=== PATIENT | female | born 1955 | race Caucasian/White ===

== ENCOUNTER → 2016-10-19 | Outpatient (CLI) | payer BC ==
--- NOTE | 2016-10-20 20:39 | MA ---
Screening Digital Mammogram With Tomosynthesis and iCAD Indication: Routine screening. Mother diagnosed with breast cancer in her early 70s. Technique: Standard digital cephalocaudal projections were obtained. Digital breast tomosynthesis wa s performed in the mediolateral oblique projection with reconstruction at 1.0 mm slice thickness. Com posite mediolateral oblique views were reconstructed. This examination was processed by the iCAD comp uter-aided detection system. Comparison: February 2015, February 2014, and November 2010. Breast Density: Type B. Findings: CAD was reviewed. No suspicious microcalcifications, mass, or architectural distortion. Impression: Negative mammogram. BI-RADS: 1 - Negative. Recommendation: Routine screening is recommended in one year. [facility] will send a result letter to the patient. Negative mammography should not preclude additional workup of a clinically suspicious finding. The patient's information is entered into a reminder system with a target due date for her next mammo gram.
== END ==
LOC: FIMAGING 12:55
DX: Z12.31 Encounter for screening mammogram for malignant neoplasm of breast (principal); Z80.3 Family history of malignant neoplasm of breast
CPT/HCPCS: G0202

== ENCOUNTER → 2016-12-08 | Outpatient (CLI) | payer BC | LOC: FIMAGING 10:07 | PROVIDERS: ATTEND Internal Medicine | DX: M51.36 Other intervertebral disc degeneration, lumbar region (principal); M46.96 Unspecified inflammatory spondylopathy, lumbar region; M48.06 Spinal stenosis, lumbar region; M48.07 Spinal stenosis, lumbosacral region ==

== ENCOUNTER → 2017-03-26 | Outpatient (CLI) | payer BC | LOC: FIMAGING 09:34 | DX: C34.90 Malignant neoplasm of unspecified part of unspecified bronchus or lung (principal); Z98.890 Other specified postprocedural states ==

== ENCOUNTER → 2017-04-25 | Outpatient (CLI) | payer BC | LOC: FIMAGING 08:17 | PROVIDERS: ATTEND Family Medicine | DX: N83.202 Unspecified ovarian cyst, left side (principal); N83.201 Unspecified ovarian cyst, right side ==

== ENCOUNTER 2017-07-02 05:50 | Inpatient (IN) | payer BC ==
[2017-06-20 12:24] LABS: % IMMATURE GRANULYOCYTES 0.3 % (0.0-1.1); ABSOLUTE IMMATURE GRANULOCYTES 0.02 10^3/uL (0.00-0.10); ADD DIFF? NO; ADD MORPH? NO; ADD SCAN? NO; ATYPICAL LYMPHOCYTE FLAG 10 (0-99); FRAGMENT RBC FLAG 0 (0-99); HEMATOCRIT 39.8 % (38.0-47.0); HEMOGLOBIN 14.3 g/dL (12.6-16.3); LEFT SHIFT FLG 0 (0-99); LIPEMIA HEMOLYSIS FLAG 90 (0-99); MEAN CELL HEMOGLOBIN 31.5 pg (27.9-34.1); MEAN CELL HEMOGLOBIN CONCENTR. 35.9 g/dL (32.4-36.7); MEAN CELL VOLUME 87.7 fL (81.5-99.8); MEAN PLATELET VOLUME 9.3 fL (8.7-11.7); PLATELET CLUMPS FLAG 0 (0-99); PLATELET COUNT 191 10^3/uL (150-400); RED BLOOD CELL COUNT 4.54 10^6/uL (4.18-5.33)
[2017-07-02] MEDS ORDERED: ceFAZolin 2 GM/DEXTROSE 100 ML IV ONE (06:16)
[2017-07-02] MEDS ORDERED: GABAPENTIN 300 MG CAP PO ONE (06:16)
[2017-07-02] MEDS ORDERED: ACETAMINOPHEN 500 MG TAB PO ONE (06:16)
[2017-07-02] MEDS ORDERED: LIDOCAINE 1% 2 ML INJ ID PRN (06:17)
[2017-07-02] MEDS ORDERED: LR 1,000 ML IV ONE (06:17)
[2017-07-02] MEDS ORDERED: THROMBIN (BOVINE) 20,000 UNIT VIAL TP ONE (06:33)
[2017-07-02] MEDS ORDERED: BUPIVACAINE 0.25% 30 ML SDV ONE (06:34)
[2017-07-02] MEDS ORDERED: BACITRACIN 50,000 UNITS/10 ML SYR IRR ONE (06:35)
--- NOTE | 2017-07-02 06:37 | PDHPUP ---
History & Physical Update H&P update statement: This history and physical update is based on an assessment of the patient which was completed after admission or registration (within 24 hours), but prior to the surgery/procedure. H&P update: H&P reviewed & patient examined, no change in patient's condition since H&P completed
[2017-07-02] MEDS ORDERED: CHLORHEXIDINE GLUC HIBICLENS 118 ML BTL TP ONE (07:02)
[2017-07-02] MEDS ORDERED: ZOLPIDEM TARTRATE 5 MG TAB PO PRN (07:14)
[2017-07-02] MEDS ORDERED: BISACODYL 10 MG SUPP PR PRN (07:15)
[2017-07-02] MEDS ORDERED: ONDANSETRON DISINTEGRATING 4 MG TAB PO PRN (07:15)
[2017-07-02] MEDS ORDERED: NALOXONE HCL 0.4 MG/ML INJ IVP PRN ×2 (07:15→12:48)
[2017-07-02] MEDS ORDERED: NS W/ 20 KCl/L 1,000 ML IV SCH (07:15)
[2017-07-02] MEDS ORDERED: MAGNESIUM HYDROXIDE 30 ML UDCUP PO PRN (07:15)
[2017-07-02] MEDS ORDERED: ONDANSETRON 4 MG/2 ML VIAL IVP PRN ×2 (07:15→12:48)
[2017-07-02] MEDS ORDERED: HYDROCODONE/APAP 5/325 TAB PO PRN (07:15)
[2017-07-02] MEDS ORDERED: POLYETHYLENE GLYCOL 3350 17 GM PKT PO PRN (07:15)
[2017-07-02] MEDS ORDERED: diphenhydrAMINE 25 MG CAP PO PRN (07:15)
[2017-07-02] MEDS ORDERED: LACTULOSE 20 GM/30 ML UDCUP PO PRN (07:15)
[2017-07-02] MEDS ORDERED: morphINE PCA 30 MG/30 ML PCA IV PRN (07:15)
[2017-07-02] MEDS ORDERED: MIDAZOLAM 2 MG/2 ML VIAL ONE (07:23)
[2017-07-02] MEDS ORDERED: MIDAZOLAM 2 MG/2 ML VIAL IVP ONE (07:26)
--- NOTE | 2017-07-02 07:27 | PDANEPAE ---
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 - Neurologic History Hx Cerebrovascular Accident: No Hx Seizures: No Hx Dementia: No - Endocrine History Hx Diabetes: No - Renal History Hx Renal Disorders: No - Liver History Hx Hepatic Disorders: No - Neurological & Psychiatric Hx Hx Neurological and Psychiatric Disorders: Yes Neurological / Psychiatric History Comment: "steady pain since November- but it does go away".Low back pain can radiate down legs. Occ numbness in toes. L leg-inside of L groin about 6 in down. - Cancer History Hx Cancer: Yes Cancer History Comment: adenocarcinoma RLL - Congenital Disorder History Hx Congenital Disorders: No - GI History Hx Gastrointestinal Disorders: No - Other Health History Other Health History: hemachromatosis- Dr Manning F/U bilat ovarian cysts. - Chronic Pain History Chronic Pain: Yes (low back/legs) - Surgical History Prior Surgeries: age 4 fell down flight stairs- don't remember if any anes. C section '. L knee scope-meniscus . L bunionectomy . R bunion -10-. lung resection RLL 4-17 ANE Review of Systems Review of Systems: - Exercise capacity METS (RN): 4 METS ANE Patient History - Allergies Allergies/Adverse Reactions: No Known Allergies Allergy (Verified 06/02/17 10:07) - Home Medications Home medications: home medication list seen and reviewed Home Medications: Carboxymethylcellulose Sodium [Refresh Liquigel] 1 drop EACHEYE DAILY 05/28/17 [ Last Taken 06/26/17] Cholecalciferol Vit D3 [Vitamin D3 2000 units tab (OTC)] 4,000 units PO DAILY [Last Taken 06/16/17] Herbals/Supplements -Info Only 1 ea PO DAILY 05/28/17 [Last Taken 06/16/17] Eckerty-3 Fatty Acids [Fish Oil 1000 mg (*)] 1,000 mg PO DAILY 05/28/17 [Last Taken 06/16/17] Tretinoin 1 mj TP DAILY 05/28/17 [Last Taken 06/30/17] Vitamin B Complex [B Complex] 1 each PO DAILY 05/28/17 [Last Taken 06/16/17] Zolpidem Tartrate [Ambien 5MG (*)] 2.5 mg PO HS PRN 05/28/17 [Last Taken 22:00] - NPO status NPO Status: no food or drink >8 hours NPO Since - Liquids (Date): 07/01/17 NPO Since - Liquids (Time): 21:30 NPO Since - Solids (Date): 07/01/17 NPO Since - Solids (Time): 20:00 - Anes Hx Anes Hx: no prior problems - Smoking Hx Smoking Status: Former smoker ANE Labs/Vital Signs - Labs Result Diagrams: 06/20/17 12:16 - Vital Signs Height: 160.02 cm Weight: 62.596 kg ANE Physical Exam - Airway Neck exam: FROM Mallampati Score: Class 1 Mouth exam: normal dental/mouth exam - Pulmonary Pulmonary: no respiratory distress - Cardiovascular Cardiovascular: regular rate and rhythym - ASA Status ASA Status: I ANE Anesthesia Plan Anesthesia Plan: general endotracheal anesthesia Lines/Monitors: arterial line (RBA discussed)
[2017-07-02] MEDS ORDERED: PROPOFOL 200 MG/20 ML VIAL ONE (07:32)
[2017-07-02] MEDS ORDERED: REMIFENTANIL HCL 1 MG VIAL ONE ×2 (07:32)
[2017-07-02] MEDS ORDERED: fentaNYL 100 MCG/2 ML INJ ONE ×2 (07:32→13:04)
[2017-07-02] MEDS ORDERED: PROPOFOL/EMULSION 500 MG/50 ML BOTTLE IV ONE ×2 (07:32→10:24)
[2017-07-02] MEDS ORDERED: LIDOCAINE 2% 5 ML SDV ONE (07:38)
[2017-07-02] MEDS ORDERED: DEXAMETHASONE 4 MG/ML VIAL ONE (08:11)
[2017-07-02] MEDS ORDERED: ONDANSETRON 4 MG/2 ML VIAL ONE (08:11)
[2017-07-02] MEDS ORDERED: PHENYLEPHRINE HCL 100 MCG/ML SYR ONE (08:19)
[2017-07-02] MEDS ORDERED: GLYCOPYRROLATE 0.2 MG/1 ML VIAL ONE (08:28)
[2017-07-02] MEDS ORDERED: HYDROmorphONE/DILAUDID 2 MG/ML INJ ONE (10:12)
[2017-07-02] MEDS ORDERED: SUGAMMADEX SODIUM 200 MG/2 ML VIAL IVP ONE (12:00)
[2017-07-02] MEDS ORDERED: LR 500 ML IV PRN (12:48)
[2017-07-02] MEDS ORDERED: HYDROmorphONE/DILAUDID 1 MG/ML INJ IVP PRN (12:48)
[2017-07-02] MEDS: fentaNYL 100 MCG/2 ML INJ IVP PRN ×2 (13:04→13:19)
--- NOTE | 2017-07-02 13:09 | POSTANESTH ---
Post Anesthetic Evaluation Cardiovascular Status: Normal, Stable Respiratory Status: Normal, Stable Level of Consciousness/Mental Status: Alert and Oriented Pain Control: Adequate, Prn Tx Ordered Nausea/Vomiting Control: Adequate, Prn Tx Ordered Complications Possibly Related to Anesthesia: None Noted
[2017-07-02] MEDS ORDERED: HYDROmorphONE/DILAUDID 1 MG/ML INJ ONE ×2 (13:32→13:56)
--- NOTE | 2017-07-02 13:33 | SOAPPROG ---
SOAP Progress Note Assessment/Plan: Post Op Visit: S: Awake and alert. Pt with expected lower back pain O: AFVSS/PERRLA/EOMI no droop CN 2-12 grossly intact +lt touch 5/5 BUE/BLE = CDI JOSEPH in place A/P: 62 yo female that is s/p TLIF L4/5 and L5/S1 -orders in place -call NS with any changes or issues -pt seen by Dr Salazar as well -brace when out of bed 07/02/17 13:30 Objective: Laboratory Results 06/20/17 12:16 ICD10 Worksheet Patient Problems: Problems Problem Status Onset Arthrodesis status Acute Lumbago Acute Lumbar radicular pain Acute - ICD10 Problem Qualifiers (1) Lumbar radicular pain (2) Lumbago Qualifiers: Chronicity: chronic Back pain laterality: bilateral Sciatica presence: with sciatica Sciatica laterality: bilateral sciatica Qualified Code(s): M54.42 - Lumbago with sciatica, left side; M54.41 - Lumbago with sciatica, right side; M54.41 - Lumbago with sciatica, right side; G89.29 - Other chronic pain; G89.29 - Other chronic pain (3) Arthrodesis status
[2017-07-02] MEDS: HYDROmorphONE/DILAUDID 1 MG/ML INJ IVP PRN ×3 (13:34→15:40)
[2017-07-02] MEDS ORDERED: ceFAZolin 2 GM/DEXTROSE 100 ML IV SCH (14:30)
--- NOTE | 2017-07-02 14:53 | GOP ---
[f rep st] OPERATIVE REPORT DATE OF OPERATION: 07/02/2017 SURGEON: Andrew Salazar MD NEUROSURGEON: Andrew Salazar MD. CORONER'S JUROR: Pancho Fu PA-C. PREOPERATIVE DIAGNOSIS: 1. Lumbar spondylolisthesis L5-S1. 2. Severe lumbar stenosis L4-5, L5-S1. 3. Bilateral lumbosacral radiculopathy. 4. Lumbar instability. POSTOPERATIVE DIAGNOSIS: 1. Lumbar spondylolisthesis L5-S1. 2. Severe lumbar stenosis L4-5, L5-S1. 3. Bilateral lumbosacral radiculopathy. 4. Lumbar instability. PROCEDURE PERFORMED: 1. Posterolateral intervertebral arthrodesis L4-5, L5-S1 (84561, 78246). 2. Placement of expandable biomechanical intervertebral devices L4-5, L5-S1 (84947 x2). 3. Same incision bone graft harvest. 4. Microscope. 5. Intraoperative stealth navigation for spinal procedure (20889). 6. Posterior segmental instrumentation L4, L5, S1 (02446). FINDINGS: ESTIMATED BLOOD LOSS: 250 cc. INDICATIONS: The patient is a 62-year-old who had terrible pain radiating down both legs, and MRI de monstrated profound degenerative spondylolisthesis of L5 on the sacrum. The grade was a grade 1, mj roaching a grade 2, but more importantly, the IAP of L5 was completely occluding the lateral recess o f the spinal canal. It was a rather impressive MRI with critical lateral recess stenosis on each daron e and severe bilateral foraminal stenosis for the exiting L5 nerve root. This similar appearance one might have particularly for the L5 root with isthmic spondylolisthesis, but in this case, there did not appear to be a pars defect. There was remarkable facet arthropathy present. There is also evide nce of similar facet arthropathy at L4-5 but really no significant spondylolisthesis, but she did hav e terrible spinal stenosis, and there were some early signs of similar process at L3-4, but there is nothing critical there. I suggested a 2 level surgery. The risk of adjacent segment disease and the need for future surgery at L3-4 as well as the risk of nerve injury, spinal fluid leak, pseudoarthro sis was discussed. She knew that there was a chance that surgery would fail to alleviate her pain, a nd she wanted to proceed despite this. The odds of success were high although not guaranteed. DESCRIPTION OF PROCEDURE: Patient was taken to the operating room, placed in supine position. Gener al anesthesia was begun. She was flipped prone onto the Miguel table. Care was taken to pad all po ints of contact. Her back was sterilely prepped and draped in usual fashion. A localizing x-ray was taken. We made about an 8 cm incision midline from the spinous process of L3 down the spinous proce ss of S1. The subcutaneous tissue was dissected using Bovie cautery down to the fascia, and subperio steal dissection was made down the inferior L3 lamina. The L4, L5, and S1 lamina were exposed. The L5 lamina was actually very difficult to visualize as it was significantly deep to the L4 lamina. Th e L4 lamina was overriding the L5 lamina. The L4-5 facet joints were severely arthritic, and we denu ded these and decorticated the transverse process at L4, L5. The L3-4 facet joints actually did not look normal, but these were completely preserved, we did not touch these joints. At L5-S1, it is a r ather remarkable finding, the IAP of L5 appeared to be floating, there was no attachment to the bone on both sides yet the IAP actually did not appear to even be attached to the lamina. It was not cons istent with bilateral pars interarticularis defect, but rather she had sesamoid bones simply floating off each of the facet joint complexes on either side at L5-S1. We denuded the L5-S1 facet joint and the sacral ala as well, and then we removed these floating sesamoid bones. We attached the stealth reference frame to the L4 spinous process as it was more accessible. The L5 spinous process was bein g over-ridden by the L4 spinous process. We performed an O-arm spin and, using frameless Stealth chetan reotaxy, placed pedicle screws bilaterally at L5, L4, and S1. We used bicortical screws at S1. We s hot x-rays and then performed an O-arm spin, and all the screws were in excellent position. We actua llchristie had very good bony purchase although her quality of bone was poor. Along the trajectory of the p edicle, there were islands of cortical bone, and we got very good bony purchase ultimately, but the b one over facet joints was really complete mush. Yet I turned out to be very happy because we were ab le to get good bony purchase within the pedicles themselves. We distracted between L4 and the sacrum . We did not actively engage the L5 tulip after putting these screws in and checking their position, and we distracted with a 55 mm enzo on the left and then went to a 60 on the right. There we came ba ck to the left and distracted on the left using a 60 mm enzo. The 55 mm enzo that we originally were u sing was discarded. The L5 vertebral body passively came up onto the enzo, and there was virtually no force required to reduce it onto the enzo. We now could visualize the L4, L5, and the sacral lamina as distinct. We performed an x-ray, and I was very happy, there was really total reduction of the sp ondylolisthesis of L5. We then removed all the soft tissue of the bone from the inferior L4 lamina a nd the L5 lamina. We harvested the inferior L4 spinous process for autologous grafting purposes. Th e complete L5 spinous process was harvested for autologous grafting purposes. We introduced operatin g microscope, and under the scope, we drilled bilateral laminae of L5 and harvested this bone for aut ologous grafting purposes. We drilled bilateral inferior hemilaminectomy of L4 and harvested it for autologous grafting purposes. Under the microscope, we opened ligamentum flavum, decompressed the th ecal sac centrally at L5-S1, and worked our way rostrally to L4-5. Once we had gone through the wil ral arch of L5 and decompressed all way up to the rostral arch of L4, we then began to widen this. A s we worked our way wider, we began at L5-S1 decompressing both S1 roots in the lateral recess. One could visualize where the roots had been pushed into the medial portion of the canal by the prolapse of the L5 IAP into the spinal canal. We continued working our way into the neural foramen. We addison thomason found additional portions of floating sesamoid bone coming off the SAP of the sacrum on each side . These were removed. There was a very large one on the left-hand side in the foramen itself, and t his bone was not attached to the sacrum, but it appeared to be a fractured remnant of the superior ar ticular process of the sacrum on the left-hand side. It was a chronic fracture. It did not occur du ring surgery. This bone was removed. We found a similar fragment on the right, but it was not as la rge. This was removed. We were able to preserve the IAP of L5 on the right as there were viable por tions of the L5 IAP on the right-hand side. We completely removed the left L4-5, L5-S1 facet joints. Again, the L3-4 facet joints rostral to our surgery were totally preserved. There was not actually a pars interarticularis defect of L5. She simply had incompetent facets with bilateral facet fractu res, but the pars interarticularis itself of L5 was intact. We performed an excellent decompression for the traversing S1 roots and the exiting L5 nerve roots undercutting on the right-hand side the pa rs interarticularis and decompressing the right nerve root into its neural foramen. On the left-hand side, we completely removed the pars interarticularis as we were going to TLIF from the left-hand si de. We then worked our way along the medial border of the L5 pedicle up to the L4-5 level, where we worked our way in the neural foramen here as well. The exiting L4 nerve root was identified. We mob ilized the traversing L5 root to access the intervertebral space. A nice decompression was obtained. We worked our way over to the right-hand side where we decompressed rostrally beginning at L5-S1 up along the pars interarticularis of L5 until we could totally appreciate the L5 root, and we continue d decompressing flush with the L5 pedicle on the right-hand side all the way up to the inferior borde r of the L4 pedicle on the right-hand side. We mobilized the nerve roots at L4-5 and L5-S1. We swep t the S1 nerve root medially, incised the L5-S1 disk, removed the disk and the cartilaginous endplate s completely. We did likewise at L4-5. We removed the disk and the cartilaginous endplates complete ly using disk space robin and even the high-speed drill. The bony endplates at L5-S1 and L4-5 appe ared to be actually intact, and I was happy with the quality of the bone in these locations. We deco rticated the bone for arthrodesis and then chose a 9 x 23 mm expandable device for each space this wo uld expand to 14 mm. It was inserted under fluoroscopic guidance after application of a trial at eac h space. We placed bone morphogenic protein and bone autograft into the disk space at L4-5, L5-S1. We expanded the devices under fluoroscopic guidance, and we were happy with our final positioning. Radha myrick released the devices to remain in place there. We decorticated all remaining bone posterolaterally and bilaterally and then placed bony autograft and BMP posterolaterally bilaterally. We then relaxe d our distraction between L4 and the sacrum on each side allowing a little bit more lordosis to be in troduced to our construct and then final tightened all the cap screws according to company specificat ion. A subfascial drain was placed. The patient was reversed from anesthesia, extubated, and transf erred to recovery room in stable condition. There were no complications. COMPLICATIONS: None. /[id number]/MODL
[2017-07-02] MEDS: ACETAMINOPHEN 500 MG TAB PO SCH ×2 (16:25→20:53)
[2017-07-02] MEDS: FAMOTIDINE 20 MG TAB PO SCH ×2 (16:26→20:52)
[2017-07-02] MEDS: CARBOXYMETHYLCELLULOSE SODIUM EACHEYE SCH (16:26)
[2017-07-02] MEDS: TRETINOIN TP SCH (16:27)
[2017-07-02] MEDS: SENNOSIDES/DOCUSATE SODIUM TAB PO SCH ×2 (16:27→20:52)
[2017-07-02] MEDS: ceFAZolin 2 GM/DEXTROSE 100 ML IV SCH (16:42)
[2017-07-02] MEDS: METHOCARBAMOL 750 MG TAB PO PRN (16:44)
[2017-07-02] MEDS: oxyCODONE IR 5 MG TAB PO PRN ×2 (16:44→20:53)
[2017-07-03] MEDS: oxyCODONE IR 5 MG TAB PO PRN ×5 (00:43→21:03)
[2017-07-03] MEDS: ceFAZolin 2 GM/DEXTROSE 100 ML IV SCH (00:43)
[2017-07-03] MEDS: METHOCARBAMOL 750 MG TAB PO PRN ×3 (01:49→17:07)
[2017-07-03] MEDS: ACETAMINOPHEN 500 MG TAB PO SCH ×3 (05:17→21:01)
[2017-07-03 05:51] LABS: HEMATOCRIT 28.9 % (38.0-47.0); HEMOGLOBIN 10.4 g/dL (12.6-16.3)
--- NOTE | 2017-07-03 08:07 | NEUSURGPN ---
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 Pt with expected lower back pain. No arango/neck/ chest/abd or gu complaints. No f/c/n/v/d. Objective: AFVSS/PERRLA/EOMI no droop CN 2-12 grossly intact +lt touch 5/5 BUE/BLE = CDI JOSEPH in place Neuro Check Frequency: per routine Urinary Catheter in Place: No Catheter Insertion Date: 07/02/17 - Physician Discussed Patient with : Martin Patient Seen by : Martin Neurosurgery Physical Exam - Vitals, I&O, Labs I and O 07/02/17 07/03/17 07/04/17 05:59 05:59 05:59 Intake Total 3460 Output Total 2760 Balance 700 Weight 62.596 kg Intake: Oral (ml) 560 IV Intake (ml) 2900 Output: Urine (ml) 2100 Catheter 2100 Estimated Blood Loss (ml) 250 JOSEPH Drain Output (ml) 410 Left Back 410 Other: Number of Voids Catheter 1 Vital Signs Temp Pulse Resp BP Pulse Ox 37.1 C 65 18 111/56 L 98 07/03/17 05:27 07/03/17 05:27 07/03/17 05:27 07/03/17 05:27 07/03/17 05:27 Laboratory Results 07/03/17 05:22 ICD10 Worksheet Patient Problems: Problems Problem Status Onset Arthrodesis status Acute Lumbago Acute Lumbar radicular pain Acute - ICD10 Problem Qualifiers (1) Lumbar radicular pain (2) Lumbago Qualifiers: Chronicity: chronic Back pain laterality: bilateral Sciatica presence: with sciatica Sciatica laterality: bilateral sciatica Qualified Code(s): M54.42 - Lumbago with sciatica, left side; M54.41 - Lumbago with sciatica, right side; M54.41 - Lumbago with sciatica, right side; G89.29 - Other chronic pain; G89.29 - Other chronic pain (3) Arthrodesis status
[2017-07-03] MEDS: SENNOSIDES/DOCUSATE SODIUM TAB PO SCH ×2 (09:27→21:04)
[2017-07-03] MEDS: FAMOTIDINE 20 MG TAB PO SCH ×2 (09:27→21:03)
[2017-07-03] MEDS: CARBOXYMETHYLCELLULOSE SODIUM EACHEYE SCH (09:30)
[2017-07-03] MEDS: TRETINOIN TP SCH (09:31)
[2017-07-03] MEDS: HYDROmorphONE/DILAUDID 1 MG/ML INJ IVP PRN ×2 (11:24→16:55)
--- NOTE | 2017-07-03 14:42 | ASMTCMCOM ---
CM Note CM Note Notes: OT rec home, PT rec outpatient. Anticipate pt will d/c when medically stable. CM available for changes/needs. Date Signed: 07/03/2017 02:42 PM Electronically Signed By:SHYANNE Redding
[2017-07-04] MEDS: METHOCARBAMOL 750 MG TAB PO PRN ×3 (01:02→15:00)
[2017-07-04] MEDS: oxyCODONE IR 5 MG TAB PO PRN ×6 (01:02→21:05)
[2017-07-04] MEDS: ACETAMINOPHEN 500 MG TAB PO SCH ×3 (05:33→21:04)
[2017-07-04] MEDS: CARBOXYMETHYLCELLULOSE SODIUM EACHEYE SCH (07:43)
[2017-07-04] MEDS: TRETINOIN TP SCH (07:44)
[2017-07-04] MEDS: SENNOSIDES/DOCUSATE SODIUM TAB PO SCH ×2 (08:53→21:04)
[2017-07-04] MEDS: FAMOTIDINE 20 MG TAB PO SCH ×2 (08:53→21:05)
--- NOTE | 2017-07-04 08:58 | NEUSURGPN ---
Date of Surgery: 07/02/17 Post Op Day: 2 Assessment/Plan: Assessment: 62 yo female that is s/p TLIF L4/5 and L5/S1 POD #2 Plan: - neuro stable - pain controlled on Oxycodone/Robaxin - postop L-spine x-rays: hardware in good placement - wear brace when out of bed - PT/OT - JOSEPH remove today - dispo: home later today if continues to progress well Discussed with Dr. Salazar. Subjective: Sitting in bedside chair. Having localized back pain radiating into the gluteal region. Objective: Awake. Alert. PERRL. EOMI Facial expression symmetrical Muscle strength full at 5/5 Sensation intact Catheter Insertion Date: 07/02/17 - Physician Discussed Patient with : Martin Neurosurgery Physical Exam - Vitals, I&O, Labs I and O 07/03/17 07/04/17 07/05/17 05:59 05:59 05:59 Intake Total 3460 1900 Output Total 2760 3180 Balance 700 -1280 Weight 62.596 kg Intake: Oral (ml) 560 1900 IV Intake (ml) 2900 Output: Urine (ml) 2100 2950 Catheter 2100 Toilet 2950 Estimated Blood Loss (ml) 250 JOSEPH Drain Output (ml) 410 230 Left Back 410 230 Other: Intake Quantity Yes Sufficient Number of Voids Catheter 1 Toilet 1 Vital Signs Temp Pulse Resp BP Pulse Ox 36.8 C 71 16 83/53 L 98 07/04/17 08:00 07/04/17 08:00 07/04/17 08:00 07/04/17 08:00 07/04/17 08:00 Laboratory Results 07/03/17 05:22 ICD10 Worksheet Patient Problems: Problems Problem Status Onset Arthrodesis status Acute Lumbago Acute Lumbar radicular pain Acute
[2017-07-04] MEDS: HYDROmorphONE/DILAUDID 1 MG/ML INJ IVP PRN (12:11)
[2017-07-05] MEDS: oxyCODONE IR 5 MG TAB PO PRN ×4 (01:25→10:46)
[2017-07-05] MEDS: ACETAMINOPHEN 500 MG TAB PO SCH (05:30)
--- NOTE | 2017-07-05 07:57 | SOAPPROG ---
SOAP Progress Note Assessment/Plan: Assessment: 62 yo F POD #3 L4-S1 fusion Plan: stable and doing well :) PT/OT post op x-rays look good scd/tete/lovenox for dvt prophylaxis likely dc home today please call with neuro changes 07/05/17 07:50 Subjective: back pain improving, some discomfort in buttocks but better today, no weakness. Objective: Vital Signs Temp Pulse Resp BP Pulse Ox 36.8 C 77 18 108/67 97 07/05/17 04:00 07/05/17 04:00 07/05/17 04:00 07/05/17 04:00 07/05/17 04:00 Laboratory Results 07/03/17 05:22 07/04/17 07/05/17 07/06/17 05:59 05:59 05:59 Intake Total 1900 1000 Output Total 3180 1450 Balance -1280 -450 AAOx4, +FC PERRL, EOMI, no facial droop 5/5 + light touch C/D/I ICD10 Worksheet Patient Problems: Problems Problem Status Onset Arthrodesis status Acute Lumbago Acute Lumbar radicular pain Acute
[2017-07-05 08:36] VITALS: BP 116/66; PULSE 89; RESP 14; TEMP 98.7; O2SAT 94
[2017-07-05] MEDS: SENNOSIDES/DOCUSATE SODIUM TAB PO SCH (08:52)
[2017-07-05] MEDS: FAMOTIDINE 20 MG TAB PO SCH (08:52)
[2017-07-05] MEDS: METHOCARBAMOL 750 MG TAB PO PRN (08:52)
[2017-07-05] MEDS ORDERED: ENOXAPARIN 40 MG/0.4 ML SYR SC SCH (09:00)
[2017-07-05] MEDS: CARBOXYMETHYLCELLULOSE SODIUM EACHEYE SCH (10:22)
[2017-07-05] MEDS: TRETINOIN TP SCH (10:22)
--- NOTE | 2017-07-05 11:45 | ASMTCMCOM ---
CM Note CM Note Notes: Per RN, Pt. d/cing independently today. Date Signed: 07/05/2017 11:44 AM Electronically Signed By:Sonia Maya LCSW
--- NOTE | 2017-07-05 17:25 | ASDISCHSUM ---
Discharge Information Plan Status:Home with No Needs Medically Cleared to Leave: Discharge Date:07/05/2017 12:43 PM CM D/C Disposition:Home, Routine, Self-Care ADT D/C Disposition:Home, Routine, Self-Care Projected Discharge Date:07/05/2017 12:43 PM Transportation at D/C: Discharge Delay Reason: Follow-Up Date:07/05/2017 12:43 PM Discharge Slot: Final Diagnosis: Placement Information Patient Contact Information Contact Name:NASRIN Relationship: Address:[address] City:[place] [facility] [place] Phone: [facility] Code:[place] [address] Email: Financial Information Financial Class:HMO and PPO Plans Primary Plan Desc: OUT OF STATE PPO Primary Plan Number:[id number] Secondary Plan Desc: Secondary Plan Number: Assessment Information [facility] CM Progress Note CM Note CM Note Notes: OT rec home, PT rec outpatient. Anticipate pt will d/c when medically stable. CM available for changes/needs. Date Signed: 07/03/2017 02:42 PM Electronically Signed By:SHYANNE Redding [facility] CM Progress Note CM Note CM Note Notes: Per RN, Pt. d/cing independently today. Date Signed: 07/05/2017 11:44 AM Electronically Signed By:Sonia Maya LCSW Intervention Information
== END 2017-07-05 12:43 | disposition home or self-care (01) | DRG 460 ==
LOC: F3N 05:50
PROVIDERS: ADMIT Neurological Surgery; ATTEND Neurological Surgery
PROC: 0SG30JJ Fusion of Lumbosacral Joint with Synthetic Substitute, Posterior Approach, Anterior Column, Open Approach (ICD-10-PCS; principal; 2017-07-02 07:30)
PROC: 3E0U0GB Introduction of Recombinant Bone Morphogenetic Protein into Joints, Open Approach (ICD-10-PCS; principal; 2017-07-02 07:30)
PROC: 0SG00JJ Fusion of Lumbar Vertebral Joint with Synthetic Substitute, Posterior Approach, Anterior Column, Open Approach (ICD-10-PCS; principal; 2017-07-02 07:30)
PROC: 0SB40ZZ Excision of Lumbosacral Disc, Open Approach (ICD-10-PCS; principal; 2017-07-02 07:30)
DX: M43.16 Spondylolisthesis, lumbar region (principal); M48.061 Spinal stenosis, lumbar region without neurogenic claudication; M51.36 Other intervertebral disc degeneration, lumbar region; M54.16 Radiculopathy, lumbar region
CPT/HCPCS: 97161-GP; 97165-GO; C1713; J0171; J0690; J1100; J1170; J1650; J2250; J2370; J2405; J2704; J3010

== ENCOUNTER → 2017-07-16 | Outpatient (CLI) | payer BC | LOC: FIMAGING 09:39 | PROVIDERS: ATTEND Nurse Practitioner | DX: Z09 Encounter for follow-up examination after completed treatment for conditions other than malignant neoplasm (principal); Z98.1 Arthrodesis status ==

== ENCOUNTER → 2017-08-26 | Outpatient (CLI) | payer BC | LOC: FIMAGING 10:46 → EDSTATUS 10:48 | PROVIDERS: ATTEND Nurse Practitioner | DX: Z47.89 Encounter for other orthopedic aftercare (principal); Z98.1 Arthrodesis status ==

== ENCOUNTER → 2017-11-27 | Outpatient (CLI) | payer BC | LOC: FIMAGING 10:21 | PROVIDERS: ATTEND Nurse Practitioner | DX: Z09 Encounter for follow-up examination after completed treatment for conditions other than malignant neoplasm (principal); Z98.1 Arthrodesis status ==

== ENCOUNTER → 2018-01-16 | Outpatient (CLI) | payer BC | LOC: FIMAGING 10:16 | PROVIDERS: ATTEND Family Medicine | DX: Z12.31 Encounter for screening mammogram for malignant neoplasm of breast (principal); Z80.3 Family history of malignant neoplasm of breast ==

== ENCOUNTER → 2018-02-26 | Outpatient (CLI) | payer BC | LOC: FIMAGING 10:46 | PROVIDERS: ATTEND Nurse Practitioner | DX: Z09 Encounter for follow-up examination after completed treatment for conditions other than malignant neoplasm (principal); Z98.1 Arthrodesis status ==

== ENCOUNTER → 2018-05-20 | Outpatient (CLI) | payer BC | LOC: FIMAGING 08:41 | PROVIDERS: ATTEND Internal Medicine Hematology & Oncology | DX: Z08 Encounter for follow-up examination after completed treatment for malignant neoplasm (principal); Z85.118 Personal history of other malignant neoplasm of bronchus and lung ==

== ENCOUNTER → 2018-06-10 | Outpatient (CLI) | payer BC | LOC: FIMAGING 14:35 | PROVIDERS: ATTEND Nurse Practitioner | DX: Z98.1 Arthrodesis status (principal) ==

== ENCOUNTER → 2018-06-13 | Outpatient (CLI) | payer BC | LOC: FIMAGING 11:11 | PROVIDERS: ATTEND Nurse Practitioner | DX: M51.16 Intervertebral disc disorders with radiculopathy, lumbar region (principal) ==

== ENCOUNTER → 2018-07-10 | Outpatient (CLI) | payer BC | LOC: CIMAGING 10:11 | PROVIDERS: ATTEND Physician Assistant Medical | DX: M79.662 Pain in left lower leg (principal) | CPT/HCPCS: 73590-PO ==

== ENCOUNTER 2018-08-17 07:44 | Inpatient (IN) | payer BC ==
[2018-08-17] MEDS ORDERED: THROMBIN (BOVINE) 5,000 UNIT VIAL TP ONE (07:46)
[2018-08-17] MEDS ORDERED: CHLORHEXIDINE GLUC HIBICLENS 118 ML BTL TP ONE (07:46)
[2018-08-17] MEDS ORDERED: BUPIVACAINE/EPI 0.25% 30 ML SDV ONE (07:46)
[2018-08-17] MEDS ORDERED: BACITRACIN 50,000 UNITS/10 ML SYR IRR ONE (07:47)
[2018-08-17] MEDS ORDERED: ceFAZolin 2 GM/DEXTROSE 100 ML IV ONE (07:51)
[2018-08-17] MEDS ORDERED: ACETAMINOPHEN 500 MG TAB PO ONE (07:51)
[2018-08-17] MEDS ORDERED: GABAPENTIN 300 MG CAP PO ONE (07:51)
[2018-08-17] MEDS ORDERED: LR 1,000 ML IV ONE (07:52)
[2018-08-17] MEDS ORDERED: LIDOCAINE 1% 2 ML INJ ID PRN (07:52)
[2018-08-17] MEDS ORDERED: REMIFENTANIL HCL 2 MG VIAL ONE (08:52)
[2018-08-17] MEDS ORDERED: PROPOFOL/EMULSION 500 MG/50 ML BOTTLE IV ONE ×3 (08:52)
[2018-08-17] MEDS ORDERED: MIDAZOLAM 2 MG/2 ML VIAL IVP ONE (08:56)
[2018-08-17] MEDS ORDERED: ALBUTEROL 3 ML DEYVIAL IH PRN (08:56)
[2018-08-17] MEDS ORDERED: ONDANSETRON 4 MG/2 ML VIAL IVP PRN ×2 (08:56→09:45)
[2018-08-17] MEDS ORDERED: oxyCODONE IR 5 MG TAB PO PRN (08:56)
[2018-08-17] MEDS ORDERED: NALOXONE HCL 0.4 MG/ML INJ IVP PRN (08:56)
[2018-08-17] MEDS ORDERED: DEXAMETHASONE 4 MG/ML VIAL IVP PRN (08:56)
[2018-08-17] MEDS ORDERED: LR 500 ML IV PRN (08:56)
[2018-08-17] MEDS ORDERED: SUCCINYLCHOLINE CHLORIDE 200 MG/10 ML SYR IVP ONE (09:02)
--- NOTE | 2018-08-17 09:07 | PDANEPAE ---
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 Occ numbness in toes. L leg-inside of L groin about 6 in down. - Cancer History Hx Cancer: Yes Cancer History Comment: adenocarcinoma RLL - Congenital Disorder History Hx Congenital Disorders: Yes Congenital History Comment: hemachromatosis- Dr Manning F/U, last phlebotomy needed 11/2016 - GI History Hx Gastrointestinal Disorders: Yes Gastrointestinal History Comment: occasional dysphagia when eating - Other Health History Other Health History: bilat ovarian cysts. rosacea - Chronic Pain History Chronic Pain: Yes (low back and hips) - Surgical History Prior Surgeries: L4-S1 TLIF, 06/2017. C section '95. L knee scope-meniscus . L bunionectomy . R bunion -10-. lung resection RLL -17. thyroid nodule removal ANE Review of Systems Review of Systems: - Exercise capacity METS (RN): 4 METS ANE Patient History - Allergies Allergies/Adverse Reactions: No Known Allergies Allergy (Verified 08/05/18 11:29) - Home Medications Home Medications: Cholecalciferol Vit D3 [Vitamin D3 2000 units tab (OTC)] 4,000 units PO DAILY [Last Taken 3 Days Ago ~08/14/18] Kinzers-3 Fatty Acids [Fish Oil 1000 mg (*)] 1,000 mg PO DAILY 05/28/17 [Last Taken 3 Days Ago ~08/14/18] Azelaic Acid [Finacea] 1 mj TP Q3D 08/03/18 [Last Taken Unknown] Herbals/Supplements -Info Only 1 ea PO DAILY 08/03/18 [Last Taken 3 Days Ago ~] Lifitegrast [Xiidra] 1 each OP DAILY PRN 08/03/18 [Last Taken 3 Days Ago ~] Melatonin [Melatonin 3 MG (*)] 3 mg PO HS 08/03/18 [Last Taken 3 Days Ago ~08/14] - NPO status NPO Since - Liquids (Date): 08/17/18 NPO Since - Liquids (Time): 06:15 NPO Since - Solids (Date): 08/16/18 NPO Since - Solids (Time): 20:00 - Smoking Hx Smoking Status: Former smoker - Family Anes Hx Family Hx Anesthesia Complications: none ANE Labs/Vital Signs - Vital Signs Blood Pressure: 139/91 Heart Rate: 73 Respiratory Rate: 14 O2 Sat (%): 98 Height: 160.02 cm Weight: 64.864 kg ANE Physical Exam - Airway Neck exam: FROM Mallampati Score: Class 2 Mouth exam: normal dental/mouth exam - Pulmonary Pulmonary: clear to auscultation - Cardiovascular Cardiovascular: regular rate and rhythym - ASA Status ASA Status: II ANE Anesthesia Plan Anesthesia Plan: general endotracheal anesthesia Total IV Anesthesia: Yes
[2018-08-17] MEDS ORDERED: MIDAZOLAM 2 MG/2 ML VIAL ONE (09:08)
[2018-08-17] MEDS ORDERED: LACTULOSE 20 GM/30 ML UDCUP PO PRN (09:45)
[2018-08-17] MEDS ORDERED: BISACODYL 10 MG SUPP PR PRN (09:45)
[2018-08-17] MEDS ORDERED: ONDANSETRON DISINTEGRATING 4 MG TAB PO PRN (09:45)
[2018-08-17] MEDS ORDERED: diphenhydrAMINE 25 MG CAP PO PRN (09:45)
[2018-08-17] MEDS ORDERED: MAGNESIUM HYDROXIDE 30 ML UDCUP PO PRN (09:45)
[2018-08-17] MEDS ORDERED: NS 1,000 ML IV SCH (09:45)
[2018-08-17] MEDS ORDERED: NON-FORMULARY NEW DRUG (Lifitegrast [Xiidra] 1 EACH) OP PRN (09:48)
[2018-08-17] MEDS ORDERED: HYDROmorphONE/DILAUDID 2 MG/ML INJ ONE ×2 (11:45→14:14)
[2018-08-17] MEDS ORDERED: REMIFENTANIL HCL 1 MG VIAL ONE (11:46)
--- NOTE | 2018-08-17 12:01 | PDMN ---
Medical Necessity Medical necessity: Pt meets inpt criteria per MD order and [facility] [place] S-[facility], Lumbar Fusion, 3 days. 63 y/o w/lumbar stenosis/ASD at L3-4 admitted for L3-4 TLIF Lum Lehman fusion w/ tie into existing hardware. Anticipate>2MN for above surgery and post-op care.
[2018-08-17] MEDS ORDERED: ONDANSETRON 4 MG/2 ML VIAL ONE (12:38)
[2018-08-17] MEDS ORDERED: DEXAMETHASONE 4 MG/ML VIAL ONE ×2 (12:38)
--- NOTE | 2018-08-17 13:25 | POSTANESTH ---
Post Anesthetic Evaluation Cardiovascular Status: Normal, Stable Respiratory Status: Normal, Stable Level of Consciousness/Mental Status: Can Participate in Eval, Alert and Oriented Pain Control: Adequate, Prn Tx Ordered Nausea/Vomiting Control: Adequate, Prn Tx Ordered Complications Possibly Related to Anesthesia: None Noted
[2018-08-17] MEDS ORDERED: fentaNYL 100 MCG/2 ML INJ ONE (13:42)
[2018-08-17] MEDS: fentaNYL 100 MCG/2 ML INJ IVP PRN ×2 (13:44→14:01)
--- NOTE | 2018-08-17 13:49 | POSTOPPROG ---
Post Op Note Date of Operation: 08/17/18 Surgeon: Shady Salazar Netting Weaver: Ama Lucas NP Anesthesiologist: Dr Santos Anesthesia: GET(General Endotracheal) Pre-op Diagnosis: Lumbar stenosis, ASD Procedure: L3-4 TLIF with tie into existing hardware L4-S1 Inf/Abcess present in the surg proc area at time of surgery?: No Depth: Deep Incisional (Fascial) EBL: 100-500 Complications: none Drains: Miguel Stubbs Date of Surgery: 08/17/18 Post Op Day: 0 Assessment/Plan: Assessment: 63 yr old F s/p L3-4 TLIF with tie into existing hardware (L4-S1) for low back and bilateral leg pain-equal Plan: -Admit med surg -PT/OT -Pain management -JOSEPH to bulb suction -Post op xrays in am -Wear brace when out of bed Please call neurosurgery with questions/concerns Subjective: Waking up in PACU Objective: Waking up in PACU MAEx4 5/5 BLE Sensation intact to light touch BLE Dressing CDI JOSEPH patent Appropriate Neuro Check Frequency Ordered: Yes
[2018-08-17] MEDS: HYDROmorphONE/DILAUDID 2 MG/ML INJ IVP PRN ×2 (14:15→14:30)
--- NOTE | 2018-08-17 14:39 | GOP ---
DATE OF OPERATION: 08/17/2018 SURGEON: Andrew Salazar MD NEUROSURGEON: Andrew Salazar MD. CAT SCANNER OPERATOR: Ama Lucas NP. PREOPERATIVE DIAGNOSIS: Severe stenosis and adjacent segment disease L3-4. Prior lumbar fusion L4, L5, S1. POSTOPERATIVE DIAGNOSIS: Severe stenosis and adjacent segment disease L3-4. Prior lumbar fusion L4, L5, S1. PROCEDURE PERFORMED: L3-4 transforaminal lumbar interbody fusion with bilateral decompressions and intervertebral arthrodesis same level (98795), same incision bone graft harvest, microscope, posterior nonsegmental instrumentation across a single interspace at L3-4 with removal of hardware at L4 but then replacement of hardware at the same level (no code assigned), placement of biomechanical intervertebral device L3-4, spinal stereotaxy microscope. FINDINGS: ESTIMATED BLOOD LOSS: 250 cc. INDICATIONS: The patient is a 63-year-old with a prior successful L4-5, L5-1 fusion. At the time of her prior surgery had some minimal disease at L3-4 that in my view was not clinically significant, and she postoperatively did well for several months but then began to develop recurrent bilateral lumbosacral radiculopathy. An MRI demonstrated severe stenosis at L3-4. I suggested a single-level TLIF. The risk of nerve injury, spinal fluid leak, screw and hardware malposition, infection, as well as the possible need for additional surgery, even at the L2-3 level, was discussed. She knew this possibility could develop in time. She knew there was a chance of continued symptoms and failure of the surgery to alleviate her pain. She wanted to proceed despite these risks. DESCRIPTION OF PROCEDURE: The patient was taken to the operating room, placed in a supine position. General anesthesia was begun. A localizing x-ray was taken. She was sterilely prepped and draped in the usual fashion. We opened the prior incision with a scalpel blade and extended it rostrally for about 4.5 cm. The subcutaneous tissue was dissected using a plasma blade down through the fascia, and a subperiosteal dissection was made down the inferior L2 lamina. The L3 lamina was exposed. The prior hardware at L4-5 was exposed. We did not expose lower than L5. We removed the soft tissue off the prior hardware and removed the cap screws at L3 and L4. We removed the cap screws at L4 and L5. We then cut the hardware inside the L4 Tulip to preserve the enzo length to allow a connector to go into place. We removed both the screws at L4 and then polished off the end of the rods so the connectors would fit. We had excellent location and seating of the connectors, which we did attempt prior to placement of our new screws. We attached the Stealth reference frame to the L3 spinous process, performed an O-arm spin, and using frameless Stealth stereotaxy, we placed pedicle screws bilaterally at L3 and they stemmed at excellent levels. An O-arm spin was made. The screws were in excellent position. We then took 30 mm rods and cut them down to 25 mm on the right and used a 30 mm on the left. We attached the connector to the enzo, extending on the right-hand side. To get the connector on , we did actually have to back out the new L3 screw, which we backed out without difficulty and then rethreaded it down the same hole after placement of the connector. We placed the rods down over it, distracted L3-4, placed the connector on the left, distracted L3-4. We got very significant distraction. We removed all soft tissue of the bone at L3-4, harvested the L3-4 spinous process for autologous grafting purposes. We preserved the rostral L3 spinous process. We drilled bilateral laminectomies at L3-4. There was a very severe stenosis and under the microscope, we performed bilateral decompressions at that level. After decompressing, we then swept the L4 nerve at the C3-4 segment off the disk on the left-hand side and incised the C3-4 disk, removed the disk and the cartilaginous endplates. We roughened the subchondral bone to create arthrodesis at L3-4 and then under fluoroscopic guidance, placed a 7 x 28 mm expandable Elevate cage at the C3-4 level. We relaxed our distraction at L3 to allow the system to set down on our implant and then final tightened the cap screws according to company specification. All the cap screws were torqued to company specification. We then expanded the L3-4 implant with relative ease and our final x-ray was excellent. We then placed bone morphogenic protein and BMP bilaterally with bone autograft bilaterally. A large amount of bone autograft had been placed in the disk space at L3-4. We confirmed on the O-arm spin, there was successful arthrodesis of the prior fusion at L4, L5, S1. We then placed a subfascial drain, closed the incision in multiple layers using Vicryl sutures. A running PDS was placed in the skin itself. Steri-Strips were applied. The patient was reversed from anesthesia, extubated, and transferred to recovery room in stable condition. There were no complications. COMPLICATIONS: None. /[id number]/MODL MTDD
[2018-08-17] MEDS: ACETAMINOPHEN 500 MG TAB PO SCH ×2 (14:57→21:47)
[2018-08-17] MEDS ORDERED: ceFAZolin 2 GM/DEXTROSE 100 ML IV SCH (15:00)
[2018-08-17] MEDS: METHOCARBAMOL 750 MG TAB PO PRN (15:18)
[2018-08-17] MEDS: oxyCODONE IR 5 MG TAB PO PRN ×4 (15:18→22:45)
[2018-08-17] MEDS: ceFAZolin 2 GM/DEXTROSE 100 ML IV SCH (16:45)
[2018-08-17] MEDS: SENNOSIDES/DOCUSATE SODIUM TAB PO SCH (21:47)
[2018-08-17] MEDS: FAMOTIDINE 20 MG TAB PO SCH (21:47)
[2018-08-17] MEDS: MELATONIN 3 MG TAB PO SCH (21:48)
[2018-08-18] MEDS: ceFAZolin 2 GM/DEXTROSE 100 ML IV SCH (01:14)
[2018-08-18] MEDS: oxyCODONE IR 5 MG TAB PO PRN ×4 (04:33→20:05)
[2018-08-18 05:16] LABS: PLATELET COUNT 183 10^3/uL (150-400)
[2018-08-18] MEDS: ACETAMINOPHEN 500 MG TAB PO SCH ×3 (05:50→21:49)
--- NOTE | 2018-08-18 08:22 | NEUSURGPN ---
Date of Surgery: 08/17/18 Post Op Day: 1 Assessment/Plan: Assessment: 63 yr old F s/p L3-4 TLIF with tie into existing hardware (L4-S1) for low back and bilateral leg pain-equal POD #1 Plan: -s/p L spine fusion: doing better this am. Pt states that her legs feel better. She has expected lower back pain that is "not as bad as the last surgery" -continue with med/surg -PT/OT-CPM -continue with current pain management -JOSEPH to bulb suction -Post op xrays pending this am -brace when out of bed -call neurosurgery with questions/concerns -plan for dc tomorrow -pt understands and agrees Subjective: Awake and alert. No new events overnight. No arango/neck/chest/abd or gu complaints. No f/c/n/v/d. Objective: AAO x 3, PERRLA/EOMI no droop CN 2-12 grossly intact MAEx4 5/5 BLE Sensation intact to light touch BLE Dressing CDI JOSEPH in place and working well Neuro Check Frequency: per routine Urinary Catheter in Place: No - Physician Discussed Patient with Dr.: Martin Patient Seen by : Martin Neurosurgery Physical Exam - Vitals, I&O, Labs I and O 08/17/18 08/18/18 08/19/18 05:59 05:59 05:59 Intake Total 2800 Output Total 2225 Balance 575 Weight 64.864 kg Intake: Oral (ml) 1500 IV Intake (ml) 1200 IV Infused (ml) 100 ceFAZolin 2 GM/DEXTROSE 100 100 ml @ 200 mls/hr IV Q8H JANETTE Rx#:[id number] Output: Urine (ml) 1900 Toilet 1900 JOSEPH Drain Output (ml) 325 #1 Back Miguel Stubbs 325 Other: Intake Quantity Yes Sufficient Output Comment Toilet miised hat Number of Voids Toilet 1 Vital Signs Temp Pulse Resp BP Pulse Ox 36.4 C 59 L 17 109/68 98 08/18/18 07:50 08/18/18 07:50 08/18/18 07:50 08/18/18 07:50 08/18/18 07:50 Laboratory Results 08/18/18 04:52 08/18/18 04:42 ICD10 Worksheet Patient Problems: Problems Problem Status Onset Arthrodesis status Acute Lumbago Acute Lumbar radicular pain Acute
[2018-08-18] MEDS: FAMOTIDINE 20 MG TAB PO SCH ×2 (08:57→20:05)
[2018-08-18] MEDS: POLYETHYLENE GLYCOL 3350 17 GM PKT PO PRN (08:58)
[2018-08-18] MEDS: SENNOSIDES/DOCUSATE SODIUM TAB PO SCH ×2 (08:58→20:05)
[2018-08-18] MEDS: METHOCARBAMOL 750 MG TAB PO PRN ×3 (09:01→21:49)
--- NOTE | 2018-08-18 10:09 | ASMTCMCOM ---
CM Note CM Note Notes: Chart reviewed for discharge planning purposes. 63 year old female underwent lumbar spinal fusion. It is her second surgery. She has a history of spinal stenosis and underwent prior back surgery with neurosurgery in the past. PT and OT pending. CM to follow for needs. No anticipated needs at this time. Plan: TBD Date Signed: 08/18/2018 10:08 AM Electronically Signed By:Katrina Burroughs RN
[2018-08-18] MEDS: MELATONIN 3 MG TAB PO SCH (20:05)
[2018-08-19] MEDS: oxyCODONE IR 5 MG TAB PO PRN ×2 (03:32→08:45)
[2018-08-19] MEDS: METHOCARBAMOL 750 MG TAB PO PRN ×2 (03:32→08:45)
[2018-08-19] MEDS: ACETAMINOPHEN 500 MG TAB PO SCH (05:27)
--- NOTE | 2018-08-19 07:42 | NEUSURGPN ---
Date of Surgery: 08/17/18 Post Op Day: 2 Assessment/Plan: Assessment: 63 yr old F s/p L3-4 TLIF with tie into existing hardware (L4-S1) for low back and bilateral leg pain-equal POD #2 Plan: -s/p L spine fusion: doing well. Ambulating well in room on own -minimal pain-well controlled with current pain medications -Pt states that her legs feel better. She has expected lower back pain that is "not as bad as the last surgery" -continue with med/surg-will dc later today -PT/OT-CPM -continue with current pain management -JOSEPH to be removed this am -Post op xrays look good -brace when out of bed-tolerating well/no skin issues -call neurosurgery with questions/concerns -pt understands and agrees Subjective: Awake and alert. NAD. Eating/drinking and voiding. No f/c/n/v/d. No arango/neck/ chest/abd or gu complaints. Objective: AAO x 3, PERRLA/EOMI no droop CN 2-12 grossly intact MAEx4 5/5 BLE Sensation intact to light touch BLE Dressing CDI JOSEPH in place and working well-to be dc later this am Neuro Check Frequency: per routine Urinary Catheter in Place: No - Physician Discussed Patient with .: Martin Patient Seen by .: Martin Neurosurgery Physical Exam - Vitals, I&O, Labs I and O 08/18/18 08/19/18 08/20/18 05:59 05:59 05:59 Intake Total 2800 2200 Output Total 2225 2290 Balance 575 -90 Weight 64.864 kg Intake: Oral (ml) 1500 2200 IV Intake (ml) 1200 IV Infused (ml) 100 ceFAZolin 2 GM/DEXTROSE 100 100 ml @ 200 mls/hr IV Q8H JANETTE Rx#:[id number] Output: Urine (ml) 1900 2200 Toilet 1900 2200 JOSEPH Drain Output (ml) 325 90 #1 Back Miguel Stubbs 325 90 Other: Intake Quantity Yes Yes Sufficient Output Comment Toilet miised hat Number of Voids Toilet 1 1 Vital Signs Temp Pulse Resp BP Pulse Ox 36.8 C 78 16 103/54 L 94 08/19/18 00:11 08/19/18 00:11 08/19/18 00:11 08/19/18 00:11 08/19/18 00:11 Laboratory Results 08/18/18 04:52 08/18/18 04:42 ICD10 Worksheet Patient Problems: Problems Problem Status Onset Arthrodesis status Acute Lumbago Acute Lumbar radicular pain Acute
[2018-08-19 08:06] VITALS: BP 94/59
[2018-08-19] MEDS: POLYETHYLENE GLYCOL 3350 17 GM PKT PO PRN (08:41)
[2018-08-19] MEDS: SENNOSIDES/DOCUSATE SODIUM TAB PO SCH (08:42)
[2018-08-19] MEDS: FAMOTIDINE 20 MG TAB PO SCH (08:42)
--- NOTE | 2018-08-19 11:06 | ASMTLACE ---
LACE Length of stay for Answers: 3 days current admission Acuity / Level of Answers: Yes Care: Did the patient have an inpatient admission? Comorbidities - select Answers: Opioid dependence all that apply / Chronic pain # of Emergency department Answers: 0 visits in the last 6 months Score: 10 Date Signed: 08/19/2018 11:05 AM Electronically Signed By:SHYANNE Redding
--- NOTE | 2018-08-19 11:08 | ASMTCMCOM ---
CM Note CM Note Notes: PT/OT rec home, no CM d/c needs identified. Date Signed: 08/19/2018 11:07 AM Electronically Signed By:SHYANNE Redding
[2018-08-20] MEDS ORDERED: AZELAIC ACID TP SCH (08:00)
[2018-08-20] MEDS ORDERED: ENOXAPARIN 40 MG/0.4 ML SYR SC SCH (09:00)
== END 2018-08-19 12:06 | disposition home or self-care (01) | DRG 455 ==
LOC: F3N 07:44
PROVIDERS: ADMIT Family Medicine; ATTEND Neurological Surgery
DX: M48.061 Spinal stenosis, lumbar region without neurogenic claudication (principal); M51.17 Intervertebral disc disorders with radiculopathy, lumbosacral region; Z98.1 Arthrodesis status
CPT/HCPCS: 97161-GP; 97165-GO; C1713; J0330; J0690; J1100; J1170; J2250; J2405; J2704; J3010

== ENCOUNTER → 2018-10-19 | Outpatient (CLI) | payer BC | LOC: FIMAGING 13:02 | PROVIDERS: ATTEND Nurse Practitioner | DX: M51.36 Other intervertebral disc degeneration, lumbar region (principal); Z98.1 Arthrodesis status ==

== ENCOUNTER → 2019-01-05 | Outpatient (CLI) | payer BC | LOC: FIMAGING 07:25 | PROVIDERS: ATTEND Internal Medicine Hematology & Oncology | DX: Z08 Encounter for follow-up examination after completed treatment for malignant neoplasm (principal) ==

== ENCOUNTER → 2019-01-18 | Outpatient (CLI) | payer BC | LOC: FIMAGING 08:27 | PROVIDERS: ATTEND Internal Medicine Hematology & Oncology | DX: Z12.31 Encounter for screening mammogram for malignant neoplasm of breast (principal); Z80.3 Family history of malignant neoplasm of breast ==

== ENCOUNTER → 2019-01-28 | Outpatient (CLI) | payer BC | LOC: FIMAGING 09:20 | PROVIDERS: ATTEND Physician Assistant | DX: Z09 Encounter for follow-up examination after completed treatment for conditions other than malignant neoplasm (principal); Z98.1 Arthrodesis status; M54.16 Radiculopathy, lumbar region; M48.07 Spinal stenosis, lumbosacral region ==